=== PATIENT | female | born 1950 | race Caucasian/White ===

== ENCOUNTER 2023-08-18 02:39 | Emergency (ER) | payer MEDICARE, BC, SELFPAY ==
[2023-08-18] VITALS (17 sets, daily range): BP systolic 118–165; BP diastolic 52–72; PULSE 56–81; RESP 18; TEMP 36.5; O2SAT 95–98; BMI 22.3
--- NOTE | 2023-08-18 03:14 | XR_ITS ---
Patient: MARI MARLOW Facility:?[facility] Patient ID:?[id number] Site Patient ID:?[id number]. Site :?[id number] Study:?XRay-Chest 2 VIEW-08/18/2023 3:28:35 AM Ordering Physician:LOUANN Final Report: INDICATION: Chest pain. TECHNIQUE: Chest radiographs, 2 views. COMPARISON: None. FINDINGS: Cardiovascular/Mediastinum: Normal heart size. Unremarkable. Lungs: No focal consolidation. Airways: Trachea remains midline. Pleura: No pleural effusions or pneumothorax. Bones: No acute osseous abnormalities. Upper abdomen: Unremarkable. IMPRESSION: No acute cardiopulmonary process. Dictated by Zhen Garcia MD @ 08/18/2023 3:40:07 AM Signed by:?Zhen Garcia MD @08/18/2023 3:40:07 AM (Electronic Signature)
[2023-08-18 03:19] LABS: Basophils Percent Auto 0.5 % (0.0-3.0); Eosinophils Percent Auto 2.2 % (0.0-7.0); Hematocrit 38.9 % (33.0-51.0); Immature Granulocytes Pct Auto 0.2 %; Lymphocytes Percent Auto 37.2 % (20-44); Mean Corpuscular HGB Conc 33 gm/dL (32-36); Mean Corpuscular Hemoglobin 32 pg (26-34); Mean Corpuscular Volume 95 fL (80-100); Monocytes Percent Auto 9.4 % (0.0-11.0); Neutrophils Percent Auto 50.5 % (42.0-72.0); Platelet Count* 273 K/uL (140-440); RDW Coefficient of Variation % 12.3 % (11.5-15.5); Red Blood Count 4.08 m/uL (4.00-5.20); White Blood Count* 12.67 K/uL (4.50-11.00)
[2023-08-18 03:21] LABS: Slide Review Reflex No
[2023-08-18 03:23] LABS: Albumin* 4.8 g/dL (3.3-5.0); Chloride* 102 mmol/L (96-114); Sodium* 138 mmol/L (135-149)
[2023-08-18 03:24] LABS: Potassium* 4.6 mmol/L (3.6-5.1)
[2023-08-18 03:26] LABS: Bilirubin Total* 0.7 mg/dL (0.1-1.5); Creatinine* 0.9 mg/dL (0.5-1.5); D Dimer Quantitative* 3.45 ug/ml (0.00-0.50); Estimated Glomerular Filt Rate 69 ml/min
[2023-08-18 03:27] LABS: Alanine Aminotransferase* 28 U/L (4-35); Alkaline Phosphatase* 68 U/L (40-150); Anion Gap 9 mEq/L (7-15); Aspartate Amino Transferase* 32 U/L (12-35); Blood Urea Nitrogen* 23 mg/dL (7-30); Calcium* 9.8 mg/dL (8.4-10.6); Carbon Dioxide* 27 mmol/L (20-32); Glucose* 114 mg/dL (60-115); Total Protein* 7.9 g/dL (6.0-8.3)
[2023-08-18 03:34] LABS: C Reactive Protein* < 0.5 mg/dL (0.5-1.0)
--- NOTE | 2023-08-18 03:35 | ED.GENADULT ---
HPI - General Adult General Chief complaint: Chest Pain Stated complaint: chest pain/heart attack 3 wks ago Time Seen by Provider: 08/18/23 02:50 Source: patient and family Mode of arrival: ambulatory Limitations: no limitations History of Present Illness HPI narrative: 9-year-old female presents the emergency department for evaluation of chest pain. She had an episode lasting for about 10 minutes that woke her from sleep at approximately 2:00 a.m. which is about 45 minutes prior to arrival. Symptoms came on suddenly, had felt well through the day. She has no prior history of specific coronary artery disease but had a recent hospitalization while on vacation in [place]. It sounds as though they have a 2nd home there. She was evaluated for double vision and it sounds like they were concerned she was having a TIA. She had a CT scan and an MRI and was hospitalized for observation for a couple of days. She had an episode of chest pain, thinking it was indigestion while she was there. It sounds like they gamaliel 5 troponins and these were elevated. They did do an echo while she was there and she was told that this was normal. It sounds like she was not made clearly aware that she had elevated troponins. It sounds like they are probably troponin T and were only elevated to about 400 I do not have records if they trended down properly or not. Nonetheless, she was instructed to follow-up with cardiology and primary care provider. She has not had recent stress testing, no prior history of stents or angiography. She said that the chest pain that she had tonight was in the left lower anterior chest and radiated around to the left rib laterally. Was not accompanied by a specific shortness of breath or dizziness but she does have ongoing issues with both nocturnal shortness of breath and dizziness. She does take a beta-jerome for hypertension. She was recommended to start a statin at hospital discharge which she has decided not to do so until after she follows up with cardiology. She has been taking the baby aspirin daily as was recommended to her at discharge also. No history of DVT or PE. No exertional type symptoms. No fever or recent illness. She was told at her primary care follow-up 2 weeks ago that she does have some EKG changes compared to her baseline. Unfortunately do not have access to any EKGs from the hospitalization in [place]. She had been asymptomatic since discharge until tonight. She has no prior history of coronary artery disease, is a nonsmoker. She does have hypertension but no history of diabetes. Other long-term problems besides hypertension are only GERD. Her home medications listed as accurate per her report. The only changes that she has decreased her lisinopril from 40 mg down to 20 mg. ROS is notable for the chest symptoms as described above only. Other chronic issues such as nocturnal shortness of breath, GERD describes symptoms are stable, otherwise negative times 12 systems. Related Data Home Medications Medication Instructions Recorded Confirmed celecoxib 200 mg capsule (Celebrex) 200 mg PO DAILY 08/18/23 08/18/23 lisinopril 40 mg PO DAILY 08/18/23 08/18/23 metoprolol tartrate 50 mg tablet 50 mg PO BID 08/18/23 08/18/23 (Lopressor) omeprazole 40 mg capsule,delayed 40 mg PO DAILY 08/18/23 08/18/23 release Previous Rx's Medication Instructions Recorded nitroglycerin 0.4 mg sublingual 0.4 mg sublingual Q5M PRN chest 08/18/23 tablet pain #10 tabs rosuvastatin 10 mg tablet 10 mg PO DAILY #30 tabs 08/18/23 Allergies Allergy/AdvReac Type Severity Reaction Status Date / Time azithromycin [From Zithromax] AdvReac Verified 08/18/23 02:51 Penicillins AdvReac Verified 08/18/23 02:51 PFSH PFSH Social History Smoking Status: Never smoker Second hand tobacco smoke exposure: No How often do you have a drink containing alcohol: never AUDIT-C Alcohol total score: 0 Non-prescribed substance use: denies use Exam Const: Vital Signs, click to edit/add: Vital Signs - 24 hr 08/18/23 02:48 08/18/23 03:15 08/18/23 03:17 Temperature 97.7 F Pulse Rate 64 Pulse Rate [Pulse Oximeter] 81 60 Respiratory Rate 18 18 Blood Pressure 124/53 L Blood Pressure [Ri ght Upper Arm] 165/72 H 124/53 L Pulse Oximetry 97 97 Oxygen Delivery Me thod Room Air 08/18/23 03:18 08/18/23 03:18 08/18/23 03:30 Temperature Pulse Rate 68 61 Pulse Rate [Pulse Oximeter] Respiratory Rate Blood Pressure Blood Pressure [Ri ght Upper Arm] Pulse Oximetry 98 96 96 Oxygen Delivery Me thod 08/18/23 03:32 08/18/23 03:45 08/18/23 03:47 Temperature Pulse Rate 62 66 56 L Pulse Rate [Pulse Oximeter] Respiratory Rate 18 Blood Pressure 120/52 L 118/55 L Blood Pressure [Ri ght Upper Arm] Pulse Oximetry 97 97 95 Oxygen Delivery Me thod 08/18/23 03:48 08/18/23 04:00 08/18/23 04:02 Temperature Pulse Rate 59 L 60 65 Pulse Rate [Pulse Oximeter] Respiratory Rate Blood Pressure 122/53 L Blood Pressure [Ri ght Upper Arm] Pulse Oximetry 96 96 96 Oxygen Delivery Me thod 08/18/23 04:18 08/18/23 04:19 08/18/23 04:32 Temperature Pulse Rate 75 76 64 Pulse Rate [Pulse Oximeter] Respiratory Rate Blood Pressure 126/66 122/65 Blood Pressure [Ri ght Upper Arm] Pulse Oximetry 97 97 96 Oxygen Delivery Me thod 08/18/23 04:47 08/18/23 05:02 08/18/23 05:17 Temperature Pulse Rate 60 60 72 Pulse Rate [Pulse Oximeter] Respiratory Rate Blood Pressure 123/64 137/63 129/68 Blood Pressure [Ri ght Upper Arm] Pulse Oximetry 96 97 96 Oxygen Delivery Me thod Documenting provider has reviewed patient's vital signs: yes Common normals: no apparent distress and alert General appearance: cooperative and well kempt Other: Mildly anxious but answers questions appropriately. Family helpful at filling in details of hospitalization. I did review records from her hospital follow-up on 08/15 through [facility]. HENMT: Common normals: normocephalic, moist oral mucous membranes and oropharynx normal Head and scalp: normocephalic Face and sinus: normal facial exam Eye: Common normals: conjunctivae normal General eye: normal appearance of both eyes Conjunctiva: conjunctiva(e) normal Neck & C-Spine: Common normals: full ROM and no lymphadenopathy Resp: Common normals: normal respiratory effort, no use of accessory muscles and clear to auscultation bilaterally Effort & inspection: able to speak in complete sentences Auscultation: clear to auscultation bilaterally Cardio: Common normals: regular rate, regular rhythm, S1 normal heart sound, S2 normal heart sound and no murmurs Rate: regular rate Rhythm: regular rhythm Heart sounds: S1 normal and S2 normal GI: Common normals: Normal to inspection, nondistended, normoactive bowel sounds present, soft to palpation, non-tender, no hepatosplenomegaly and no masses Palpation: soft and no hepatosplenomegaly Back & Pelvis: Common normals: thoracic and lumbar spine normal to inspection Extremity: Common normals: normal to inspection, full ROM, normal capillary refill and no pedal edema Neuro: Sensorium/orientation: alert Speech: speech normal Gait (neuro): normal gait Motor exam: no tremor noted and no movement abnormalities noted Psych: Appearance: well kempt Attitude: engaged Activity/motor behavior: appropriate eye contact Memory/cognition: memory grossly intact Insight: insight good Judgement: judgment good Skin: Common normals: no rashes or lesions noted General skin exam: no rashes or lesions noted Course Course ED Course: Episode of chest pain in woman with recent findings concerning for non STEMI from outside hospital. Has cardiology follow-up pending in 5 days and currently has is [address] Initial examination not revealing any signs of arrhythmia. Chest pain is now gone. No treatment has been administered. We will draw basic labs including troponins, BNP, inflammatory markers, chest x-ray and await findings. Counseled family that she would likely benefit from starting a statin destabilized any plaques and to have a supply of nitroglycerin on hand in case symptoms return. She did not like the sound of either of these but I think it would be important. Will consult Cardiology if any abnormalities found today. Reevaluation(s) Time of Reevaluation #1: 05:49 Reevaluation #1: Patient continues to have no symptoms while here in the ED. discussed all lab findings. No unusual events noted on cardiac monitors. Vital signs have remained stable. She has her follow-up already scheduled with cardiology in a few days. Otherwise I would have ordered a stress test but since this is already pending, I will let her keep her follow-up appointment with her healthcare system back home. We discussed the importance of statin therapy and she was willing to start 1 at my recommendation to potentially help stabilize any cardiac plaques. She is already taking aspirin daily and is on a beta-jerome for cardiac protection. She accepts my offer for a nitroglycerin prescription and we discussed appropriate use. Come back to the emergency department if there is any persistent chest pain. I did also discuss that I think if the cardiac workup is negative she would be a good candidate for 24 hour pH esophageal monitor as I think she could be having esophageal reflux not well managed by her omeprazole. See written discharge instructions, all questions answered. Second troponin also 0 Vital Signs Vital signs: Initial Vital Signs Temperature 97.7 F 08/18/23 02:48 Temperature Source Temporal Artery Scan 08/18/23 02:48 Pulse Rate 81 08/18/23 02:48 Respiratory Rate 18 08/18/23 02:48 Respiratory Effort Normal, Spontaneous, Non-Labored 08/18/23 02:48 Respiratory Depth Normal 08/18/23 02:48 Respiratory Pattern Normal 08/18/23 02:48 Blood Pressure 165/72 H 08/18/23 02:48 Blood Pressure Mean 103 08/18/23 02:48 Blood Pressure Position Sitting 08/18/23 02:48 Pulse Oximetry 97 08/18/23 02:48 Oxygen Delivery Method Room Air 08/18/23 02:48 Vital Signs Temperature 97.7 F 08/18/23 02:48 Pulse Rate 81 08/18/23 02:48 Respiratory Rate 18 08/18/23 02:48 Blood Pressure 165/72 H 08/18/23 02:48 Pulse Oximetry 97 08/18/23 02:48 Oxygen Delivery Method Room Air 08/18/23 02:48 Temperature 97.7 F 08/18/23 02:48 Pulse Rate 72 08/18/23 05:17 Respiratory Rate 18 08/18/23 03:47 Blood Pressure 129/68 08/18/23 05:17 Pulse Oximetry 96 08/18/23 05:17 Oxygen Delivery Method Room Air 08/18/23 02:48 Medical Decision Making Lab Data Lab results reviewed: Yes I reviewed the patient's lab results Lab results narrative: Normal troponin, normal BNP, labs otherwise reassuring except elevated D-dimer. Will order CT PA Labs: Lab Results 08/18/23 08/18/23 08/18/23 Range/Units 02:47 03:14 05:00 WBC 12.67 H (4.50-11.00) K/uL RBC 4.08 (4.00-5.20) m/uL Hgb 13.0 (12.0-16.0) gm/dL Hct 38.9 (33.0-51.0) % MCV 95 (80-100) fL MCH 32 (26-34) pg MCHC 33 (32-36) gm/dL RDW Coeff of Wanda 12.3 (11.5-15.5) % Plt Count 273 (140-440) K/uL Neut % (Auto) 50.5 (42.0-72.0) % Lymph % (Auto) 37.2 (20-44) % Dougherty % (Auto) 9.4 (0.0-11.0) % Eos % (Auto) 2.2 (0.0-7.0) % Baso % (Auto) 0.5 (0.0-3.0) % Neut # (Auto) 6.40 (1.7-7.0) K/uL Lymph # (Auto) 4.70 H (0.90-2.90) K/uL Dougherty # (Auto) 1.20 H (0.00-0.90) K/UL Eos # (Auto) 0.30 (0.00-0.50) K/uL Baso # (Auto) 0.10 (0.00-0.30) K/uL Abs Immat Gran (auto) 0.00 (0.00-0.30) K/uL Imm/Tot Granulo (auto) 0.2 % D-Dimer Quant (PE/DVT) 3.45 H (0.00-0.50) ug/ml Sodium 138 (135-149) mmol/L Potassium 4.6 (3.6-5.1) mmol/L Chloride 102 (96-114) mmol/L Carbon Dioxide 27 (20-32) mmol/L Anion Gap 9 (7-15) mEq/L BUN 23 (7-30) mg/dL Creatinine 0.9 (0.5-1.5) mg/dL Estimated Creat Clear 45.20 Estimated GFR 69 ml/min Glucose 114 (60-115) mg/dL Calcium 9.8 (8.4-10.6) mg/dL Total Bilirubin 0.7 (0.1-1.5) mg/dL AST 32 (12-35) U/L ALT 28 (4-35) U/L Alkaline Phosphatase 68 (40-150) U/L Troponin I < 0.01 L (0.01-0.04) ng/mL C-Reactive Protein < 0.5 L (0.5-1.0) mg/dL NT-Pro-B Natriuret Pep 77 pg/mL Total Protein 7.9 (6.0-8.3) g/dL Albumin 4.8 (3.3-5.0) g/dL POC Troponin I 0.00 L 0.00 L (0.01-0.04) ng/ml Imaging Data CT scan - chest: Attestation: I have reviewed the pertinent imaging results. My impression: No PE or infiltrates Radiologist's impression: IMPRESSION: 1. Negative for pulmonary embolism. 2. No acute pulmonary process. 3. Few small sub 6 millimeter pulmonary nodules. If patient is high risk for lung cancer, an optional 12 month follow-up CT may be performed per Fleischner society guidelines. ECG Data Attestation: I personally reviewed and interpreted this ECG as follows: Prior ECG tracings: not available for review Interpretation: Sinus rhythm, rate 62. Normal axis and intervals. Very low voltage overall. T-wave inversion anterolateral leads, uncertain of chronicity or significance. Discharge Plan Discharge Clinical Impression: Chest pain Patient Disposition: Home w/ Parent or Adult Condition: Improved Instructions: Chest Pain (DC) Additional Instructions: I am glad that the chest pain has improved. As we discussed, and still concerned about your heart. Since you already have a assistant spa manager appointment coming up in 6 days, I will not order a stress test here. Keep taking her metoprolol, but I a.m. okay with you decreasing this to a half a tablet twice daily. As we discussed, I think it is important to go ahead and start that statin because it does help stabilize cardiac plaques in addition to the long-term benefits. I am sending a prescription to your local pharmacy. I am also sending a supply of nitroglycerin. I am hopeful that you will not need that medication but you would take it if you have persistent chest pain. Remember that it will cause lightheadedness so if you take it you should sit or lie down and make sure you call for help. Keep your follow-up on Tuesday with your assistant spa manager. Return in your ZIO patch monitor as previously recommended. If you have any severe chest pain again prior to your appointment, please come back to the emergency room. No strenuous exercise until you see the assistant spa manager but light activity is okay. Activity Level: No Restrictions Discharge Diet: Regular Prescriptions: New rosuvastatin 10 mg tablet 10 mg PO DAILY Qty: 30 0RF nitroglycerin 0.4 mg tablet, sublingual 0.4 mg sublingual Q5M PRN (Reason: chest pain) Qty: 10 0RF Rx Instructions: do not exceed 3 doses per episode No Action lisinopril 40 mg PO DAILY Rx Instructions: take 0.5 tab (20mg) every morning metoprolol tartrate [Lopressor] 50 mg tablet 50 mg PO BID celecoxib [Celebrex] 200 mg capsule 200 mg PO DAILY omeprazole 40 mg capsule,delayed release(DR/EC) 40 mg PO DAILY Follow Up/Referrals: Provider,Not a Local [Primary Care Provider] - Stand Alone Forms: MyHealth Info Instructions
[2023-08-18 03:38] LABS: NT Pro B Type NatriureticPept* 77 pg/mL; Troponin I* < 0.01 ng/mL (0.01-0.04)
--- NOTE | 2023-08-18 03:50 | CT_ITS ---
Patient: MARI MARLOW Facility:?[facility] Patient ID:?[id number] Site Patient ID:?[id number]. Site :?[id number] Study:?CT-Chest PE W/ISOVUE 370 95CC-08/18/2023 4:23:19 AM Ordering Physician:LOUANN Final Report: INDICATION: Chest pain, elevated D-dimer. TECHNIQUE: CT chest PE was acquired with 95 cc Isovue 370 IV contrast. COMPARISON: None. FINDINGS: Heart and vasculature: Contrast opacification of the pulmonary arterial tree is adequate. No sign of pulmonary embolism. Heart size is normal. Thoracic aorta and pulmonary artery are normal in caliber. Lungs and pleura: Few scattered sub 6 millimeter pulmonary nodules (for example 3 millimeter left upper lobe nodule, series 5, image 76). Mild biapical scarring. Lungs otherwise clear. No pleural effusions, pleural thickening, or pneumothorax. Lymph nodes/mediastinum: No mediastinal, hilar, or axillary adenopathy. Chest wall: No masses. Upper abdomen: No acute or significant findings. Bones: Unremarkable for age. IMPRESSION: 1. Negative for pulmonary embolism. 2. No acute pulmonary process. 3. Few small sub 6 millimeter pulmonary nodules. If patient is high risk for lung cancer, an optional 12 month follow-up CT may be performed per Fleischner society guidelines. Please note that all CT scans at this facility use dose modulation, iterative reconstruction, and/or weight-based dosing when appropriate to reduce radiation dose to as low as reasonably achievable. Dictated by Espinoza Ybarra MD @ 08/18/2023 5:20:41 AM Signed by:?Espinoza Ybarra MD @08/18/2023 5:20:41 AM (Electronic Signature)
== END 2023-08-18 05:58 | disposition home or self-care (01) ==
PROVIDERS: Emergency Provider Family Medicine
DX: R07.9 Chest pain, unspecified (principal)
CPT/HCPCS: 36415; 71046; 71275; 80053; 83880; 84484; 85025; 85379; 86140; 93005; 94761; 99284; 99285; Q9967